=== PATIENT | female | born 1990 | race Caucasian/White ===

== ENCOUNTER 2020-05-02 13:15 | Inpatient (IN) | payer OTHER ==
[~2020-05-02] VITALS: Ht 170.2 cm; Wt 83.9 kg
[2020-05-24] MEDS ORDERED: PRENATAL TABLE1 EAC1 PO (09:44)
== END 2020-05-26 13:53 | DRG 807 ==
LOC: LDR 05-21 13:15 → SURG-SUITE 05-24 08:54 → LDR 05-24 08:54 → SURG-SUITE 05-24 17:49
PROVIDERS: ADMIT Obstetrics & Gynecology Maternal & Fetal Medicine; ATTEND Obstetrics & Gynecology Maternal & Fetal Medicine
PROC: 10E0XZZ Delivery of Products of Conception, External Approach (ICD-10-PCS; principal; 2020-05-24)
PROC: 0KQM0ZZ Repair Perineum Muscle, Open Approach (ICD-10-PCS; 2020-05-24)
PROC: 4A0HXFZ Measurement of Products of Conception, Cardiac Rhythm, External Approach (ICD-10-PCS; 2020-05-24)
DX: O70.1 Second degree perineal laceration during delivery (principal); Z37.0 Single live birth; Z3A.40 40 weeks gestation of pregnancy

== ENCOUNTER 2020-05-15 09:39 | Outpatient (CLI) | payer OTHER | END 2020-05-15 10:21 | disposition home or self-care (01) | LOC: NST 09:39 | PROVIDERS: ATTEND Obstetrics & Gynecology Maternal & Fetal Medicine | DX: Z34.83 Encounter for supervision of other normal pregnancy, third trimester (principal) ==

== ENCOUNTER 2020-05-19 10:28 | Outpatient (CLI) | payer OTHER | END 2020-05-19 11:08 | disposition home or self-care (01) | LOC: NST 10:28 | PROVIDERS: ATTEND Obstetrics & Gynecology | DX: Z34.83 Encounter for supervision of other normal pregnancy, third trimester (principal) ==

== ENCOUNTER 2020-05-22 09:35 | Outpatient (CLI) | payer OTHER | END 2020-05-22 10:21 | disposition home or self-care (01) | LOC: NST 09:35 | PROVIDERS: ATTEND Obstetrics & Gynecology Maternal & Fetal Medicine | DX: Z34.83 Encounter for supervision of other normal pregnancy, third trimester (principal) ==

== ENCOUNTER 2022-07-30 15:43 | Emergency (ER) | payer OTHER ==
[~2022-07-30] VITALS: Ht 162.6 cm; Wt 61.7 kg
[~2022-07-30 15:43] MED LIST: PRENATAL TABLE1 EAC1 PO
== END 2022-07-30 20:14 | disposition home or self-care (01) ==
LOC: ER 15:43
DX: O99.612 Diseases of the digestive system complicating pregnancy, second trimester (principal); K52.9 Noninfective gastroenteritis and colitis, unspecified; Z3A.24 24 weeks gestation of pregnancy

== ENCOUNTER 2022-11-01 14:15 | Inpatient (IN) | payer OTHER | END 2022-11-18 13:16 | disposition home or self-care (01) | DRG 807 | LOC: LDR 11-16 14:15 → OB/GYN 11-16 18:27 → LDR 11-16 19:06 → OB/GYN 11-16 22:03 | PROVIDERS: ADMIT Obstetrics & Gynecology; ATTEND Obstetrics & Gynecology | PROC: 10E0XZZ Delivery of Products of Conception, External Approach (ICD-10-PCS; principal; 2022-11-16) | PROC: 0HQ9XZZ Repair Perineum Skin, External Approach (ICD-10-PCS; 2022-11-16) | PROC: 4A1HXCZ Monitoring of Products of Conception, Cardiac Rate, External Approach (ICD-10-PCS; 2022-11-16) | DX: O70.0 First degree perineal laceration during delivery (principal); Z37.0 Single live birth; Z3A.40 40 weeks gestation of pregnancy; Z20.822 Contact with and (suspected) exposure to COVID-19 ==

== ENCOUNTER 2022-11-13 09:51 | Outpatient (CLI) | payer OTHER | END 2022-11-13 10:25 | disposition home or self-care (01) | LOC: NST 09:51 | PROVIDERS: ATTEND Obstetrics & Gynecology Gynecology | DX: Z34.83 Encounter for supervision of other normal pregnancy, third trimester (principal) ==